=== PATIENT | female | born 1995 | race Caucasian/White ===

== ENCOUNTER 2017-08-03 19:44 | Emergency (ER) | payer BC ==
[~2017-08-03] VITALS: Ht 177.8 cm; Wt 90.0 kg
[2017-08-03 19:50] VITALS: TEMP 98.2
[2017-08-03] MEDS ORDERED: PREDNISONE20 MG PO (20:20)
[2017-08-03 20:30] VITALS: BP 117/70; PULSE 80
== END 2017-08-03 20:30 | disposition home or self-care (01) ==
LOC: COL.ER 19:44
DX: S30.861A Insect bite (nonvenomous) of abdominal wall, initial encounter (principal); S10.96XA Insect bite of unspecified part of neck, initial encounter; S40.869A Insect bite (nonvenomous) of unspecified upper arm, initial encounter; L51.9 Erythema multiforme, unspecified; W57.XXXA Bitten or stung by nonvenomous insect and other nonvenomous arthropods, initial encounter; Y92.59 Other trade areas as the place of occurrence of the external cause; Y99.0 Civilian activity done for income or pay
CPT/HCPCS: J7512

== ENCOUNTER → 2021-01-14 | Outpatient (CLI) | payer BC ==
[~2021-01-14] MED LIST: PREDNISONE20 MG PO
== END ==
LOC: COL.RAD 13:51
DX: M48.061 Spinal stenosis, lumbar region without neurogenic claudication (principal); M51.26 Other intervertebral disc displacement, lumbar region; M54.16 Radiculopathy, lumbar region